=== PATIENT | male | born 1985 | race Hispanic/Latino ===

== ENCOUNTER 2023-05-10 19:05 | Inpatient (IN) | payer SELFPAY ==
[2023-05-10 20:23] LABS: Hematocrit 49.6 % (39.6-49.0); Lymphocytes % 22.1 % (15.3-44.8); MCV 82.6 fL (80-100); MPV 8.7 fL (7.6-11.3); Platelets 288 thou/uL (152-406); RBC Red Blood Cell Count 6.01 M/uL (4.33-5.43)
[2023-05-10 20:28] LABS: Protime INR 1.11
[2023-05-10] MEDS ORDERED: NA CHLORIDE 0.9% 1,000 ML ONE ×2 (20:36→22:32)
[2023-05-10 20:40] LABS: ALT/SGPT 59 U/L (16-61); AST/SGOT 40 U/L (15-37); Albumin 5.4 g/dL (3.4-5.0); Alkaline Phosphatase 72 U/L (45-117); BUN Blood Urea Nitrogen 25 mg/dL (7-18); Bicarbonate 23 mEq/L (21-32); Bilirubin Direct 0.2 mg/dL (0-0.2); Bilirubin Indirect, Calculated 0.7 mg/dL (0.2-0.8); Bilirubin Total 0.9 mg/dL (0.2-1.0); Glomerular Filtration Rate 27 ml/min (=/>90); Glucose Level 94 mg/dL (74-106); Potassium 3.3 mEq/L (3.5-5.1); Protein, Total 10.1 g/dL (6.4-8.2); Sodium Level 131 mEq/L (136-145)
[2023-05-10 21:31] LABS: Creatine Phosphokinase 646 U/L (39-308)
--- NOTE | 2023-05-10 21:33 | ER ---
Nurse's Notes [facility] Name: Eduardo Cam Age: 37 yrs Sex: Male : 1985 Arrival Date: 05/10/2023 Time: 19:05 Bed 18 Private MD: Diagnosis: Acute kidney failure, unspecified;Chest pain, unspecified Presentation: 05/10 19:20 Chief complaint: Patient states: SMOKING METH THIS MORNING AT 0600 AND AROUND 1300 cm10 STARTED HAVING SHORTNESS OF BREATH, CHEST PAIN AND BLURRED VISION. Coronavirus screen: Vaccine status: Patient reports being unvaccinated. Client denies travel out of the [place] in the last 14 days. Ebola Screen: Patient denies travel to an Ebola-affected area in the 21 days before illness onset. No symptoms or risks identified at this time. Initial Sepsis Screen: Does the patient meet any 2 criteria? No. Patient's initial sepsis screen is negative. Does the patient have a suspected source of infection? No. Patient's initial sepsis screen is negative. Risk Assessment: Do you want to hurt yourself or someone else? Patient reports no desire to harm self or others. Onset of symptoms was May 10, 2023. 19:20 Method Of Arrival: Ambulatory cm10 19:20 Acuity: ALTAF 3 cm10 Historical: - Allergies: 19:22 No Known Allergies; cm10 - Home Meds: 19:22 None [Active]; cm10 - PMHx: 19:22 drug abuse; cm10 - PSHx: 19:22 None; cm10 - Immunization history:: Adult Immunizations unknown. - Social history:: Smoking status: Patient denies any tobacco usage or history of. Patient uses street drugs, Methamphetamine (Meth) XANAX. Screenin:33 [facility] ED Fall Risk Assessment (Adult) History of falling in the last 3 months, kl including since admission No falls in past 3 months (0 pts) Confusion or Disorientation No (0 pts) Intoxicated or Sedated No (0 pts) Impaired Gait No (0 pts) Mobility Assist Device Used No (0 pt) Altered Elimination No (0 pt) Score/Fall Risk Level 0 - 2 = Low Risk Oriented to surroundings, Maintained a safe environment. Abuse screen: Denies threats or abuse. Nutritional screening: No deficits noted. Tuberculosis screening: No symptoms or risk factors identified. Assessment: 20:45 General: Appears in no apparent distress. Behavior is calm, cooperative. Pain: Denies kl pain. Neuro: No deficits noted. Cardiovascular: Rhythm is regular. Respiratory: No deficits noted. GI: No deficits noted. No signs and/or symptoms were reported involving the gastrointestinal system. : No deficits noted. No signs and/or symptoms were reported regarding the genitourinary system. Vital Signs: 19:20 BP 127 / 94; Pulse 119; Resp 18; Temp 98.2; Pulse Ox 97% ; Weight 97.52 kg; Height 5 cm10 ft. 6 in. ; Pain 5/10; 22:35 BP 125 / 89; Pulse 95; Resp 17; Pulse Ox 98% ; bp 19:20 Body Mass Index 34.70 (97.52 kg, 167.64 cm) cm10 19:20 Pain Scale: Adult cm10 ED Course: 19:08 Patient arrived in ED. kj1 19:14 Hedy Sabillon FNP-C [facility]. kb 19:14 Ana Galdamez MD is Attending Physician. kb 19:22 Triage completed. cm10 19:22 Arm band placed on Patient placed in waiting room. cm10 20:07 Acetaminophen Sent. cm10 20:07 Basic Metabolic Panel Sent. cm10 20:07 CBC with Diff Sent. cm10 20:07 ETOH Level Sent. cm10 20:07 Hepatic Function Sent. cm10 20:07 PT-INR Sent. cm10 20:07 Ptt, Activated Sent. cm10 20:07 Salicylate Sent. cm10 20:07 Initial lab(s) drawn, by me, sent to lab. Inserted saline lock: 20 gauge in right cm10 antecubital area, using aseptic technique. Blood collected. Patient maintains SpO2 saturation greater than 95% on room air. 20:28 Acetaminophen Sent. kl 20:28 Basic Metabolic Panel Sent. kl 20:28 ETOH Level Sent. kl 20:28 Hepatic Function Sent. kl 20:28 PT-INR Sent. kl 20:28 Ptt, Activated Sent. kl 20:28 Salicylate Sent. kl 20:28 Urine Drug Screen Sent. kl 21:13 Kareem Zaldivar, TAWNYA is Primary Nurse. bp 21:33 Ivan Garcia MD is Hospitalizing Provider. kb 22:11 Chest Single View XRAY In Process Unspecified. EDMS 22:35 Patient has correct armband on for positive identification. Bed in low position. Call bp light in reach. Provided Education on: N/A. Client placed on continuous cardiac and pulse oximetry monitoring. NIBP monitoring applied. 22:35 No provider procedures requiring assistance completed. Patient admitted, IV remains in bp place. Administered Medications: 20:28 Drug: NS 0.9% IV 1000 ml Route: IV; Rate: 1000 ml; Site: right antecubital; kl 21:34 Follow up: IV Status: Completed infusion; IV Intake: 1000ml kl 22:20 Drug: NS 0.9% IV 1000 ml Route: IV; Rate: 1000 ml; Site: right antecubital; bp 22:36 Follow up: IV Status: Infusion continued upon admission bp Intake: 21:34 IV: 1000ml; Total: 1000ml. kl Outcome: 21:33 Decision to Hospitalize by Provider. kb 22:35 Admitted to Med/surg accompanied by tech, via wheelchair, room 228, with chart, Report bp called to DOMINGO BOWLING 22:35 Condition: stable 22:35 Instructed on the need for admit. 22:54 Patient left the ED. bp Signatures: Dispatcher [employer] EDNY Hedy Sabillon, TEACHER'S AIDE-C TEACHER'S AIDE-Amy Reis RN RN Kareem Muniz RN RN Shayy Huffman kj1 Nanci Kidd RN RN cm10
--- NOTE | 2023-05-10 21:34 | EDPHYS ---
Physician Documentation [facility] Name: Eduardo Cam Age: 37 yrs Sex: Male : 1985 Arrival Date: 05/10/2023 Time: 19:05 Bed 18 Private MD: ED Physician Ana Galdamez HPI: 05/10 22:27 This 37 yrs old Male presents to ER via Ambulatory with complaints of Chest kb Pain, Shortness Of Breath. 22:27 The patient or guardian reports chest pain that is located primarily in the chest kb diffusely. The pain does not radiate. Associated signs and symptoms: Pertinent positives: near-syncope, shortness of breath. The chest pain is described as a pressure. Duration: The patient or guardian reports a single episode. Modifying factors: The symptoms are alleviated by nothing. the symptoms are aggravated by nothing. Severity of pain: At its worst the pain was moderate in the emergency department the pain is unchanged. The patient has not experienced similar symptoms in the past. The patient has not recently seen a physician. Pt states he started smoking meth a week ago. He did more than normal this morning, then was doing yard work when he started having chest pain, shortness of breath and near-syncope at 1300. States symptoms have gotten worse since then. Historical: - Allergies: 19:22 No Known Allergies; cm10 - Home Meds: 19:22 None [Active]; cm10 - PMHx: 19:22 drug abuse; cm10 - PSHx: 19:22 None; cm10 - Immunization history:: Adult Immunizations unknown. - Social history:: Smoking status: Patient denies any tobacco usage or history of. Patient uses street drugs, Methamphetamine (Meth) XANAX. ROS: 22:26 Constitutional: Negative for fever, chills, and weight loss. kb 22:26 Cardiovascular: Positive for chest pain. 22:26 Respiratory: Positive for shortness of breath. 22:26 All other systems are negative. Exam: 21:43 Constitutional: This is a well developed, well nourished patient who is awake, alert, kb and in no acute distress. Head/Face: Normocephalic, atraumatic. ENT: Moist Mucous membranes Cardiovascular: Regular rate and rhythm with a normal S1 and S2. No gallops, murmurs, or rubs. No pulse deficits. Respiratory: Respirations even and unlabored. No increased work of breathing. Talking in full sentences Abdomen/GI: Soft, non-tender. No distention Skin: Warm, dry with normal turgor. Normal color. MS/ Extremity: Pulses equal, no cyanosis. Neurovascular intact. Full, normal range of motion. Neuro: Awake and alert, GCS 15, oriented to person, place, time, and situation. Moves all extremities. Normal gait. 21:43 ECG was reviewed by the Attending Physician. Vital Signs: 19:20 BP 127 / 94; Pulse 119; Resp 18; Temp 98.2; Pulse Ox 97% ; Weight 97.52 kg; Height 5 cm10 ft. 6 in. ; Pain 5/10; 22:35 BP 125 / 89; Pulse 95; Resp 17; Pulse Ox 98% ; bp 19:20 Body Mass Index 34.70 (97.52 kg, 167.64 cm) cm10 19:20 Pain Scale: Adult cm10 MDM: 19:15 Patient medically screened. kb 22:27 Data reviewed: vital signs, nurses notes. Consideration of Admission/Observation kb Patient was admitted/placed on observation. Escalation of care including admission/observation considered. 22:27 Differential diagnosis: abnormal EKG, acute myocardial infarction, anxiety, coronary kb artery disease drug abuse. Management of patient was discussed with the following: Hospitalist: Mac MARTINEZ accepts pt for admission under Dr Garcia. Counseling: I had a detailed discussion with the patient and/or guardian regarding the historical points, exam findings, and any diagnostic results supporting the discharge/admit diagnosis, lab results, radiology results, the need for further work-up and treatment in the hospital. 05/10 19:21 Order name: Acetaminophen; Complete Time: 21:32 kb 05/10 19:21 Order name: Basic Metabolic Panel; Complete Time: 21:32 kb 05/10 19:21 Order name: CBC with Diff; Complete Time: 20:25 kb 05/10 19:21 Order name: ETOH Level; Complete Time: 20:36 kb 05/10 19:21 Order name: Hepatic Function; Complete Time: 21:32 kb 05/10 19:21 Order name: PT-INR; Complete Time: 20:36 kb 05/10 19:21 Order name: Ptt, Activated; Complete Time: 20:36 kb 05/10 19:21 Order name: Salicylate; Complete Time: 21:08 kb 05/10 19:21 Order name: Urine Drug Screen; Complete Time: 21:53 kb 05/10 21:09 Order name: Urinalysis w/ reflexes; Complete Time: 22:05 kb 05/10 21:20 Order name: Creatine Phosphokinase; Complete Time: 21:32 EDMS 05/10 21:33 Order name: Troponin High Sensitivity; Complete Time: 21:53 kb 05/10 21:33 Order name: Chest Single View XRAY; Complete Time: 22:21 kb 05/10 19:21 Order name: EKG; Complete Time: 19:22 kb 05/10 19:21 Order name: EKG - Nurse/Tech; Complete Time: 19:30 kb 05/10 19:21 Order name: IV Saline Lock; Complete Time: 20:07 kb 05/10 19:21 Order name: Labs collected and sent; Complete Time: 20:07 kb EC:43 Rate is 122 beats/min. Rhythm is regular. QRS [place] is Normal. SC interval is normal at kb 132 msec. QRS interval is normal at 80 msec. QT interval is normal at 470 msec. Administered Medications: 20:28 Drug: NS 0.9% IV 1000 ml Route: IV; Rate: 1000 ml; Site: right antecubital; kl 21:34 Follow up: IV Status: Completed infusion; IV Intake: 1000ml kl 22:20 Drug: NS 0.9% IV 1000 ml Route: IV; Rate: 1000 ml; Site: right antecubital; bp 22:36 Follow up: IV Status: Infusion continued upon admission bp Disposition Summary: 05/10/23 21:33 Hospitalization Ordered Hospitalization Status: Observation kb Provider: Ivan Garcia Location: Telemetry/MedSurg (observation) kb Condition: Stable kb Problem: new kb Symptoms: are unchanged kb Bed/Room Type: Standard Room Assignment: 228(05/10/23 22:11) Diagnosis - Acute kidney failure, unspecified kb - Chest pain, unspecified kb Forms: - Medication Reconciliation Form kb - SBAR form kb - Leadership Thank You Letter kb Signatures: Dispatcher [employer] Hedy Tenorio FNP-C FNP-Ckb Lewis, Kimberly, RN RN kl Webb, Martha, RN RN mw Attema, Lee, FNP-C FNP-Cla1 Kareem Zaldivar, RN RN bp Nanci Kidd RN RN cm10 Corrections: (The following items were deleted from the chart) 21:46 21:16 CREATINE PHOSPHOKINASE+C.BECCA.SERGEI ordered. EDMS EDMS 22:11 21:33 kb mw
[2023-05-10 21:43] LABS: Barbiturates NEGATIVE (NEGATIVE); Benzodiazepines POSITIVE (NEGATIVE); Cocaine NEGATIVE (NEGATIVE); METHAMPHETAM POSITIVE (NEGATIVE); Methadone NEGATIVE (NEGATIVE); Opiates NEGATIVE (NEGATIVE); Phencyclidine NEGATIVE (NEGATIVE); THC Cannibis NEGATIVE (NEGATIVE)
[2023-05-10 22:04] LABS: Specific Gravity 1.026 (1.005-1.030); Urine Bacteria 20-50 /HPF (<20); Urine Bilirubin 1+ (Negative); Urine Blood Negative (Negative); Urine Clarity Extremely Turbid (Clear); Urine Color Yellow (Yellow); Urine Glucose NEGATIVE (Negative); Urine Mucus 4+ /HPF (None Seen); Urine Protein 1+ (Negative); Urine Sperm Present (None Seen); Urine Urobilinogen 1+ (Normal)
--- NOTE | 2023-05-10 22:14 | RAD REPORT ---
EXAM DESCRIPTION: RAD - Chest Single View - 05/10/2023 10:09 pm CLINICAL HISTORY: CHEST PAIN Chest pain. COMPARISON: <Comparisons> FINDINGS: Portable technique limits examination quality. The lungs are grossly clear. The heart is normal in size. No displaced fractures. IMPRESSION: No acute intrathoracic process suspected.
--- NOTE | 2023-05-10 22:28 | P.HP ---
Certification for Inpatient Patient admitted to: Observation With expected LOS: <2 Midnights Patient will require the following post-hospital care: None Practitioner: I am a practitioner with admitting privileges, knowledge of patient current condition, hospital course, and medical plan of care. Services: Services provided to patient in accordance with Admission requirements found in Title 42 Section 412.3 of the Code of Federal Regulations Patient History Date of Service: 05/10/23 Reason for admission: Acute kidney injury History of Present Illness: 37-year-old male with no known significant past medical history presents emergency department with chief complaint of shortness of breath, chest pain, blurry vision, nausea, vomiting. He reports smoking methamphetamine this morning around 6 AM also doing a lot of work around the house and yard today when he developed the symptoms. He also reports poor oral intake recently. He was evaluated in the emergency department his labs are significant for white blood cell 13.5 hemoglobin 16.9 hematocrit 49.6 sodium 131 potassium 3.3 chloride 97 BUN 25 creatinine 3.02 GFR 27 UDS positive for benzos, amphetamines initial high-sensitivity opponent negative, EKG without STEMI criteria. Chest x-ray negative for acute findings. ED provider wishes to admit for acute kidney injury. Allergies No Known Aller Allergy (Uncoded 05/09/17 17:41) Unknown No Known Allergies Allergy (Uncoded 09/21/17 09:18) Unknown - Past Medical/Surgical History -: none -: none Psychosocial/ Personal History: Lives at home with family - Family History Family History: Reviewed- Non-Contributory - Social History Smoking Status: Never smoker Alcohol use: Yes CD- Drugs: Yes Caffeine use: Yes Place of Residence: Home Review of Systems 10-point ROS is otherwise unremarkable Cardiovascular: Chest Pain, Light Headedness Gastrointestinal: Nausea Physical Examination - Physical Exam General: Alert, In no apparent distress, Oriented x3 HEENT: Atraumatic, PERRLA, Mucous membr. moist/pink, EOMI, Sclerae nonicteric Neck: Supple, 2+ carotid pulse no bruit, No LAD, Without JVD or thyroid abnormality Respiratory: Clear to auscultation bilaterally, Normal air movement Cardiovascular: Regular rate/rhythm, Normal S1 S2 Gastrointestinal: Normal bowel sounds, No tenderness Musculoskeletal: No tenderness Integumentary: No rashes Neurological: Normal gait, Normal speech, Normal strength at 5/5 x4 extr, Normal tone, Normal affect Lymphatics: No axilla or inguinal lymphadenopathy - Studies Laboratory Data (last 24 hrs) 05/10/23 05/10/23 05/10/23 20:06 20:06 20:06 WBC 13.50 H Hgb 16.9 Hct 49.6 H Plt Count 288 PT 12.2 INR 1.11 APTT 33.5 Sodium 131 L Potassium 3.3 L BUN 25 H Creatinine 3.02 H Glucose 94 Total Bilirubin 0.9 AST 40 H ALT 59 Alkaline Phosphatase 72 Assessment and Plan - Plan Assessment: Acute kidney injury Chest pain rule out ACS Amphetamine/benzodiazepine abuse Plan: Acute kidney injury Suspect this is prerenal, continue IV fluids, nephrology consult, renal ultrasound. CPK mildly elevated will trend. Chest pain rule out ACS Trend troponins, monitor on telemetry. Consult cardiology if there is significant elevations in troponin or persistent chest pain. Amphetamine/benzodiazepine abuse Counseled on need for cessation. DVT PPX: Heparin subcu Code status: Full Discharge Plan: Home Plan to discharge in: 48 Hours - Advance Directives Does patient have a Living Will: No Does patient have a Durable POA for Healthcare: No - Code Status/Comfort Care Code Status Assessed: Yes (Full code) Critical Care: No Time Spent Managing Pts Care (In Minutes): 55
[2023-05-10 23:03] VITALS: BMI 34.8
[2023-05-10] MEDS ORDERED: ONDANSETRON 4 MG/2 ML VIAL IV PRN (23:22)
[2023-05-10] MEDS: NA CHLORIDE 0.9% 1,000 ML IV SCH (23:54)
[2023-05-11 00:58] VITALS: O2SAT 98
[2023-05-11 03:41] LABS: Absolute Lymphocytes (CBC) 3.1 K/uL (0.7-4.9); Hematocrit 41.7 % (39.6-49.0); Lymphocytes % 31.7 % (15.3-44.8); MCV 82.6 fL (80-100); MPV 8.7 fL (7.6-11.3); Platelets 240 thou/uL (152-406); RBC Red Blood Cell Count 5.05 M/uL (4.33-5.43)
[2023-05-11 04:04] LABS: Potassium 3.3 mEq/L (3.5-5.1); Thyroid Stimulating Hormone 1.52 uIU/mL (0.358-3.740); Uric Acid 7.3 mg/dL (3.5-7.2)
[2023-05-11 04:12] LABS: UR PROTEIN 25.8 mg/dL (<11.9)
--- NOTE | 2023-05-11 07:40 | P.PN ---
Date of Service: 05/11/23 Subjective: Feeling much better today no new / worsening problems ROS: 10 point ROS as noted above, otherwise negative Physical Exam: GEN: Alert, oriented, NAD HEENT: Normal conjunctiva, sclera anicteric CV: Regular rate and rhythm, no edema Pulm: Nonlabored respirations on room air ABD: Soft, nontender, nondistended MSK: No joint tenderness Integumentary: No rashes Neuro: Normal speech, normal affect vitals reviewed Problem List: GLORIA Chest pain Amphetamine/benzodiazepine abuse GLORIA likely prerenal renal u/s (05/10): pending nephrology consult continue IVF CPK mildly elevated, trend Chest pain troponins negative x3 monitor on telemetry. continue heparin sq Amphetamine/benzodiazepine abuse Counseled on need for cessation. VTE: Heparin sq Code: Full Dispo: Home
--- NOTE | 2023-05-11 07:47 | RAD REPORT ---
EXAM DESCRIPTION: US - Renal Ultrasound-Complete - 05/10/2023 11:53 pm CLINICAL HISTORY: jhoana COMPARISON: Abdomen Pelvis W Contrast dated 09/21/2017 TECHNIQUE: Sonographic grayscale and color flow images of the kidneys and bladder were obtained. FINDINGS: Both kidneys are normal in size, shape and echotexture. The right kidney measures 9.3 cm in length. No hydronephrosis, focal mass or perinephric fluid. The left kidney measures 10.6 cm in length. No hydronephrosis, focal mass or perinephric fluid. Incid entally noted anechoic superior pole exophytic 1 cm simple cyst. No echogenic calculi. The urinary bladder is incompletely distended without gross abnormality seen. IMPRESSION: Incidentally noted simple appearing left superior pole renal cyst. No other abnormalities of the kidneys. Bladder is incompletely distended which limits evaluation, wit hout gross abnormality.
[2023-05-11] MEDS ORDERED: HEPARIN 5000 UNIT/ML 1 ML VIAL SQ SCH (09:00)
[2023-05-11] MEDS: NA CHLORIDE 0.9% 1,000 ML IV SCH (09:02)
[2023-05-11] MEDS ORDERED: POTASSIUM 25 MEQ EFFERV TAB PO ONE (11:28)
[2023-05-11] MEDS ORDERED: POTASSIUM CL 40 MEQ in NA CHLORIDE 0.9% 500 ML IV SCH (12:00)
--- NOTE | 2023-05-11 13:04 | EKG ---
Test Date: 2023-05-10 Test Time: 19:28:34 Food Service Technician: RAFI MEASUREMENT RESULTS: Intervals: Rate: 122 MD: 132 QRSD: 80 QT: 330 QTc: 470 What Cheer: P: 44 MD: 132 QRS: 7 T: 38 INTERPRETIVE STATEMENTS: Sinus tachycardia Otherwise normal ECG Compared to ECG 09/21/2017 05:43:04 Right-axis deviation no longer present Electronically Signed On 05-11-23 13:03:09 CDT by Mac Pacheco
--- NOTE | 2023-05-11 13:36 | P.DS ---
Admission Date: 05/10/23 Discharge Date: 05/11/23 Reason for Admission: Acute kidney injury Consultations: Nephrology - Dr. Spears Brief History of Present Illness: 37yo M, PMH: no known significant past medical history Patient presents emergency department with chief complaint of shortness of breath, chest pain, blurry vision, nausea, vomiting. He reports smoking methamphetamine this morning around 6 AM also doing a lot of work around the house and yard today when he developed the symptoms. He also reports poor oral intake recently. He was evaluated in the emergency department his labs are significant for white blood cell 13.5 hemoglobin 16.9 hematocrit 49.6 sodium 131 potassium 3.3 chloride 97 BUN 25 creatinine 3.02 GFR 27 UDS positive for benzos, amphetamines initial high-sensitivity opponent negative, EKG without STEMI criteria. Chest x-ray negative for acute findings. Hospital Course: Problem List: GLORIA Chest pain Amphetamine/benzodiazepine abuse Patient presented with shortness of breath, chest pain, nausea/vomiting. He was found to have a GLORIA, secondary to heat exhaustion / dehydration. Nephrology was consulted. Patients symptoms resolved with IV fluids. Renal ultrasound incidentally noted simple appearing left superior pole renal cyst otherwise unremarkable. Advised patient to ensure adequate hydration and to take proper breaks at work to prevent recurrent episodes. Advised to take it easy for the next day. Ok to return to work in 2 days without restrictions. Ensure adequate breaks/hydration. Follow up: PCP 3-5 days Nephrology - Dr. Spears in ~2-3 weeks Physical Exam: GEN: Alert, oriented, NAD HEENT: Normal conjunctiva, sclera anicteric CV: Regular rate and rhythm, no edema Pulm: Nonlabored respirations on room air ABD: Soft, nontender, nondistended MSK: No joint tenderness Integumentary: No rashes Neuro: Normal speech, normal affect Vital Signs/Physical Exam: Temp Pulse Resp BP Pulse Ox 97.7 F 83 18 123/56 L 97 05/11/23 08:00 05/11/23 08:00 05/11/23 08:00 05/11/23 08:00 05/11/23 08:00 Laboratory Data at Discharge: WBC 9.60 thou/uL (4.3-10.9) 05/11/23 02:23 Hgb 14.6 g/dL (13.6-17.9) D 05/11/23 02:23 Hct 41.7 % (39.6-49.0) 05/11/23 02:23 Plt Count 240 thou/uL (152-406) 05/11/23 02:23 PT 12.2 SECONDS (9.5-12.5) 05/10/23 20:06 INR 1.11 05/10/23 20:06 APTT 33.5 SECONDS (24.3-36.9) 05/10/23 20:06 Sodium 138 mEq/L (136-145) D 05/11/23 02:23 Potassium 3.3 mEq/L (3.5-5.1) L 05/11/23 02:23 BUN 27 mg/dL (7-18) H 05/11/23 02:23 Creatinine 1.87 mg/dL (0.70-1.30) H 05/11/23 02:23 Glucose 93 mg/dL (74-106) 05/11/23 02:23 Uric Acid 7.3 mg/dL (3.5-7.2) H 05/11/23 02:23 Total Bilirubin 0.9 mg/dL (0.2-1.0) 05/10/23 20:06 AST 40 U/L (15-37) H 05/10/23 20:06 ALT 59 U/L (16-61) 05/10/23 20:06 Alkaline Phosphatase 72 U/L (45-117) 05/10/23 20:06 Home Medications: NK [No Home Meds] 05/10/23 Physician Discharge Instructions: Patient presented with shortness of breath, chest pain, nausea/vomiting. He was found to have a GLORIA, secondary to heat exhaustion / dehydration. Nephrology was consulted. Patients symptoms resolved with IV fluids. Renal ultrasound incidentally noted simple appearing left superior pole renal cyst otherwise unremarkable. Advised patient to ensure adequate hydration and to take proper breaks at work to prevent recurrent episodes. Advised to take it easy for the next day. Ok to return to work in 2 days without restrictions. Ensure adequate breaks/hydration. Follow up: PCP 3-5 days Nephrology - Dr. Spears in ~2-3 weeks Followup: NONE,NONE [Primary Care Provider] - Time spent managing pt's care (in minutes): 45
--- NOTE | 2023-05-11 14:07 | CON ---
Date of Consultation: 05/11/2023 Reason For Consultation: Elevated BUN and creatinine. History Of Present Illness: This is a 37-year-old gentleman with significant past medical history ne marry. The patient came to the hospital complaining from shortness of breath and weakness, nausea a nd vomiting and diarrhea, found to have elevation in BUN, creatinine, and CK. For that reason, we alejandro ve been consulted. The patient apparently was working in the heat and he also took amphetamine. The patient denied any leg cramp or any loss of consciousness. The patient was started on hydration. K idney function started being improving. Renal ultrasound did not show any obstruction. Past Medical History: Negative. Allergies: NO KNOWN DRUGS ALLERGY. Past Surgical History: Negative. Family History: Positive for hypertension. Social History: Denied smoking. Active alcohol, active drug amphetamine. Review of Systems: Head and Neck: Has headache. GI: Has nausea, vomiting. : No polyuria. No dysuria. No hematuria. Instruction Librarian: Not applicable. Respiratory: No shortness of breath. Cardiovascular: No chest pain. Endocrine: No polydipsia. Skin: No rash. Neuro: Generalized weakness. Musculoskeletal: Only weakness. Physical Examination: Vital Signs: When I saw the patient; blood pressure 123/56, pulse of 83, afebrile. Chest: Clear to auscultation. Heart: S1, S2. Regular. Abdomen: Soft, nontender. Extremity: No edema. Neurologic: Alert. No focality. Laboratory Data: Hemoglobin 14.6. Sodium 138, potassium 3.3, bicarb 28, BUN 27, creatinine 1.8, do cium 9, uric acid 7.3. Upon admission; creatinine 3, GFR of 27. Albumin 5.4. TSH 1.5. Urinalysis negative for infection, positive for WBC 10, RBC of 10. PC ratio not done. +1 protein. Renal ultra sound; normal size kidney 9.3 x 10.6. Renal cyst 1 cm on the left side. Assessment And Plan: 1.Acute kidney injury secondary to heat exhaustion and mild rhabdomyolysis with dehydration, on the recovery, normal size kidney. I am going to continue hydration by the end of the day. The patient m ay be discharged if needed as he is cleared from the Renal standpoint. 2.Hypokalemia secondary to depletional. I am going to replace. 3.Hypercalcemia secondary to dehydration. I am going to continue hydration. 4.Heat exhaustion. Continue hydration. 5.Rhabdomyolysis, on the recovery. Continue hydration. ELIZ Voice ID: [id number] Report ID: [id number]
[2023-05-11 14:55] VITALS: BP 111/56; TEMP 97.5
== END 2023-05-11 15:00 | disposition home or self-care (01) | DRG 923 ==
LOC: ER 19:05 → 2ND 22:06
PROVIDERS: ADMIT Hospitalist; ATTEND Hospitalist
DX: T67.5XXA Heat exhaustion, unspecified, initial encounter (principal); N17.9 Acute kidney failure, unspecified; M62.82 Rhabdomyolysis; F15.10 Other stimulant abuse, uncomplicated; F13.10 Sedative, hypnotic or anxiolytic abuse, uncomplicated; E86.0 Dehydration; E87.6 Hypokalemia; E83.52 Hypercalcemia; Z71.51 Drug abuse counseling and surveillance of drug abuser
CPT/HCPCS: 36415; 71045; 76770; 80048; 80076; 80143; 80179; 80307; 81001; 82077; 82550; 84132; 84156; 84300; 84439; 84443; 84484; 84550; 85025; 85610; 85730; 93005; 96360; 99285; J1644; J3480; J7030; J7040

== ENCOUNTER 2024-10-27 14:50 | Emergency (ER) | payer OTHER, SELFPAY ==
[2024-10-27] MEDS ORDERED: TDAP (DIPHTH,PERTUSS(ACELL),TET VAC) 0.5 ML VIAL IMVAC ONE (15:12)
[2024-10-27] MEDS ORDERED: IBUPROFEN 400 MG TAB ONE (15:12)
--- NOTE | 2024-10-27 16:18 | RAD REPORT ---
EXAM: XR RIGHT HAND HISTORY: Pain. PAIN COMPARISON: None TECHNIQUE: Multiple projections of the right hand submitted. FINDINGS: Mild soft tissue swelling affects the third finger. No acute fracture or dislocation.
--- NOTE | 2024-10-27 16:28 | ER ---
Nurse's Notes [facility] Name: Eduardo Cam Age: 39 yrs Sex: Male : 1985 Arrival Date: 10/27/2024 Time: 14:50 Bed 19 Private MD: Diagnosis: Contusion of right hand;Abrasion of right hand Presentation: 10/27 14:54 Chief complaint: Patient states: "I punches a wall about an hour ago". Small aa5 lacerations noted to right index finger and right thumb, no active bleeding. 14:54 Method Of Arrival: Ambulatory aa5 14:54 Coronavirus screen: At this time, the client does not indicate any symptoms associated aa5 with coronavirus-19. Ebola Screen: Patient denies travel to an Ebola-affected area in the 21 days before illness onset. Initial Sepsis Screen: Does the patient meet any 2 criteria? HR > 90 bpm. Does the patient have a suspected source of infection? No. Patient's initial sepsis screen is negative. Risk Assessment: Do you want to hurt yourself or someone else? Patient reports no desire to harm self or others. Onset of symptoms was October 27, 2024. 14:54 Acuity: ALTAF 4 aa5 Historical: - Allergies: 14:58 No Known Allergies; aa5 - PMHx: 14:58 drug abuse; aa5 - Immunization history:: Last tetanus immunization: unknown. - Infectious Disease History:: Denies. - Social history:: Smoking status: Patient denies any tobacco usage or history of. Screenin:00 [facility] ED Fall Risk Assessment (Adult) History of falling in the last 3 months, jb4 including since admission No falls in past 3 months (0 pts) Confusion or Disorientation No (0 pts) Intoxicated or Sedated No (0 pts) Impaired Gait No (0 pts) Mobility Assist Device Used No (0 pt) Altered Elimination No (0 pt) Score/Fall Risk Level 0 - 2 = Low Risk Oriented to surroundings, Maintained a safe environment. Abuse screen: Denies threats or abuse. Nutritional screening: No deficits noted. Tuberculosis screening: No symptoms or risk factors identified. Assessment: 15:00 General: Appears in no apparent distress. comfortable, Behavior is calm, cooperative, jb4 appropriate for age. Pain: Complains of pain in right hand Pain does not radiate. Pain currently is 8 out of 10 on a pain scale. Neuro: Level of Consciousness is awake, alert, obeys commands, Oriented to person, place, time, situation. Cardiovascular: Patient's skin is warm and dry. Respiratory: Airway is patent Respiratory effort is even, unlabored, Respiratory pattern is regular, symmetrical. Derm: Skin is intact, Skin is pink, warm \\T\\ dry. Musculoskeletal: Circulation, motion, and sensation intact. Swelling present in right hand. 16:15 Reassessment: Patient appears in no apparent distress at this time. Patient and/or jb4 family updated on plan of care and expected duration. Pain level reassessed. Patient is alert, oriented x 3, equal unlabored respirations, skin warm/dry/pink. Vital Signs: 14:54 BP 140 / 87; Pulse 97; Resp 18 S; Temp 98.3(TE); Pulse Ox 98% on R/A; Weight 113.4 kg aa5 (R); Height 5 ft. 6 in. (R); 14:54 Body Mass Index 40.35 (113.40 kg, 167.64 cm) aa5 ED Course: 14:52 Patient arrived in ED. im 14:54 Hedy Sabillon FNP-C is [facility]. kb 14:54 Jin Medina MD is Attending Physician. kb 14:54 Arm band placed on Patient placed in an exam room, on a stretcher. aa5 15:00 Patient has correct armband on for positive identification. Bed in low position. Call jb4 light in reach. Side rails up X 1. Provided Education on: plan of care. 15:00 No provider procedures requiring assistance completed. jb4 15:01 Triage completed. aa5 16:08 Hand Right 3 View XRAY In Process Unspecified. EDMS 16:15 Patient did not have IV access during this emergency room visit. jb4 Administered Medications: 15:19 Drug: Boostrix Tdap IM 0.5 ml IM once; as a single dose Route: IM; Site: right deltoid; jb4 16:40 Follow up: Response: No adverse reaction; Marked relief of symptoms jb4 15:19 Drug: Ibuprofen PO 800 mg PO once Route: PO; jb4 16:40 Follow up: Response: No adverse reaction; Marked relief of symptoms jb4 Medication: 15:00 VIS not applicable for this client. jb4 Outcome: 16:15 Discharged to home ambulatory, jb4 16:15 Condition: stable 16:15 Discharge instructions given to Pt left prior to receiving discharge instructions. 16:28 Discharge ordered by . shannen 16:40 Patient left the ED. jb4 Signatures: Dispatcher [employer] Hedy Tenorio, JEZ FIERRO-Toshia Guerrero RN RN aa5 Irineo Goel RN RN jb4 Tequila Cerda
--- NOTE | 2024-10-27 16:28 | EDPHYS ---
Physician Documentation [facility] Name: Eduardo Cam Age: 39 yrs Sex: Male : 1985 Arrival Date: 10/27/2024 Time: 14:50 Bed 19 Private MD: ED Physician Jin Medina HPI: 10/27 14:55 This 39 yrs old Male presents to ER via Unassigned with complaints of Hand kb Injury - right punched a wall. 14:55 Pt is a 39 year old male who presents for pain and decreased rom of right hand that kb occurred 1 hour ago after punching a wall. Denies any other injuries. Historical: - Allergies: 14:58 No Known Allergies; aa5 - PMHx: 14:58 drug abuse; aa5 - Immunization history:: Last tetanus immunization: unknown. - Infectious Disease History:: Denies. - Social history:: Smoking status: Patient denies any tobacco usage or history of. ROS: 14:55 Constitutional: As per HPI kb Exam: 14:55 Constitutional: This is a well developed, well nourished patient who is awake, alert, kb and in no acute distress. Head/Face: Normocephalic, atraumatic. ENT: Moist Mucous membranes Cardiovascular: Regular rate Respiratory: Respirations even and unlabored. No increased work of breathing. Talking in full sentences Skin: Warm, dry with normal turgor. Normal color. Neuro: Awake and alert, GCS 15, oriented to person, place, time, and situation. 14:55 Musculoskeletal/extremity: Extremities: grossly normal except: noted in the dorsal aspect of proximal phalanx of right index finger: abrasion, noted in the right hand: decreased ROM, pain, ROM: limited active range of motion due to pain, Circulation is intact in all extremities. Sensation intact. Vital Signs: 14:54 BP 140 / 87; Pulse 97; Resp 18 S; Temp 98.3(TE); Pulse Ox 98% on R/A; Weight 113.4 kg aa5 (R); Height 5 ft. 6 in. (R); 14:54 Body Mass Index 40.35 (113.40 kg, 167.64 cm) aa5 MDM: 14:54 Medical Screening Exam initiated kb 16:16 Differential diagnosis: fracture, contusion. Data reviewed: vital signs, nurses notes. kb Independent interpretation of the following test(s) in the Emergency Department X-Ray: My interpretation is no fracture. Counseling: I had a detailed discussion with the patient and/or guardian regarding the historical points, exam findings, and any diagnostic results supporting the discharge/admit diagnosis, radiology results, the need for outpatient follow up, a family practitioner, to return to the emergency department if symptoms worsen or persist or if there are any questions or concerns that arise at home. 10/27 14:57 Order name: Hand Right 3 View XRAY; Complete Time: 16:27 kb 10/27 14:57 Order name: Ice pack; Complete Time: 15:19 kb Administered Medications: 15:19 Drug: Boostrix Tdap IM 0.5 ml IM once; as a single dose Route: IM; Site: right deltoid; jb4 16:40 Follow up: Response: No adverse reaction; Marked relief of symptoms jb4 15:19 Drug: Ibuprofen PO 800 mg PO once Route: PO; jb4 16:40 Follow up: Response: No adverse reaction; Marked relief of symptoms jb4 Disposition Summary: 10/27/24 16:28 Discharge Ordered Notes: Location: Home kb Condition: Stable kb Diagnosis - Contusion of right hand kb - Abrasion of right hand kb Followup: kb - With: Emergency Department - When: As needed - Reason: Worsening of condition Followup: kb - With: Private Physician - When: 2 - 3 days - Reason: Recheck today's complaints, Continuance of care, Re-evaluation by your physician Discharge Instructions: - Discharge Summary Sheet kb - Hand Contusion, Ibiv-nt-Pbox kb - Abrasion, Aere-no-Hued kb Forms: - Medication Reconciliation Form kb - Antibiotic Education kb - Prescription Opioid Use kb - Patient Portal Instructions kb - Leadership Thank You Letter kb Signatures: Dispatcher [employer] Hedy Tenorio, JEZ FIERRO-Toshia Guerrero, RN RN aa5 Irineo Goel, TAWNYA RN jb4
[2024-10-27 16:59] VITALS: BP 140/87; TEMP 98.3; O2SAT 98
== END 2024-10-27 16:40 | disposition home or self-care (01) ==
LOC: ER 14:50
DX: S60.511A Abrasion of right hand, initial encounter (principal)
CPT/HCPCS: 96372; 99284